=== PATIENT | male | born 1950 | race Caucasian/White ===

== ENCOUNTER 2019-08-16 23:58 | Emergency (ER) | payer SELFPAY ==
[~2019-08-16] VITALS: Ht 172.7 cm; Wt 109.0 kg
[2019-08-17] MEDS ORDERED: LIDOCAINE HCL 1% 20ML VIAL (Pyxis) INJ INFIL ONE (01:30)
[2019-08-17 02:34] VITALS: BP 134/94
== END 2019-08-17 02:34 | disposition home or self-care (01) ==
LOC: ER 23:58
DX: S61.012A Laceration without foreign body of left thumb without damage to nail, initial encounter (principal); S00.83XA Contusion of other part of head, initial encounter; W01.198A Fall on same level from slipping, tripping and stumbling with subsequent striking against other object, initial encounter; Y93.01 Activity, walking, marching and hiking; Y92.480 Sidewalk as the place of occurrence of the external cause; F10.10 Alcohol abuse, uncomplicated; Y90.9 Presence of alcohol in blood, level not specified
CPT/HCPCS: 12001; 99283; J3490; Z7610